=== PATIENT | male | born 1965 | race Caucasian/White ===

== ENCOUNTER 2024-08-16 18:51 | Emergency (ER) | payer OTHER ==
[~2024-08-16] VITALS: Ht 185.4 cm; Wt 97.4 kg
--- NOTE | 2024-08-16 23:36 | Physician Documentation ---
History of Present Illness ~ Chief Complaint: Neck pain Stated Complaint: NECK SHOLDER PAIN, NECK PAIN ` Time Seen by MD: 23:36 HPI Patient presented to the emergency room for evaluation of head neck and leg pain. Three days ago he was attempting to install in AC and it dropped on him onto his head and neck causing him to slide down a ladder. He also scraped his wilkes in the process in now wilkes has red and painful. Medication Reconciliation Allergies: Coded Allergies: No Known Allergies (Unverified , 08/16/24) Review of Systems ROS All review of systems negative except as per HPI Physical Exam Vital Signs: Temperature: 99.5, Source: Oral, Heart Rate: 85, Respiratory Rate: 15, BP: 126/81, Pulse Oximetry: 97, Weight: 97.360 Oxygen Flow Rate: 0 Physical Exam General: Patient is awake, alert, oriented x4 in no acute distress and well appearing.~ Head: Normocephalic the small abrasion on back of right occiput Eyes: Conjunctival normal. EOMI. PERRL. ENT: Mucous membranes moist. Neck: Supple, trachea is midline. Chest: Clear to auscultation bilaterally without rales, rhonchi, or wheezes. There is no accessory muscle use or retractions. Cardiac: RRR without murmurs, gallops, or rubs.. Extremities: Cellulitis noted to right anterior wilkes measuring 20 cm x 10 cm with no fluctuance. Neurovascularly intact. Progress Results/Orders Results/Orders Orders - BHARATH ORDAZ MD Ct Cervical Spine (08/16/24 23:59) Ct Head (08/16/24 23:59) Vl Venous (08/16/24 23:41) Completed Orders - BHARATH ORDAZ MD Ct Cervical Spine (08/16/24 23:59) Ct Head (08/16/24 23:59) Ondansetron Disint. Tablet (Zofran Odt T (08/16/24 23:45) Sulfamethox/Trimetho. Ds Tab (Septra Ds (08/16/24 23:45) Medications Received in ER Medications (Trade) Dose Ordered Sig/Duglas Route PRN Reason Start Time Stop Time Status Last Admin Dose Admin (Zofran ODT tablet) 4 mg ONCE ONCE PO 08/16/24 23:45 08/16/24 23:46 DC 08/17/24 00:10 4 MG (Septra DS tab) 2 tab ONCE ONCE PO 08/16/24 23:45 08/16/24 23:46 DC 08/17/24 00:11 2 TAB Vital Signs 08/16/24 08/17/24 18:55 00:14 Temp 99.5 98.4 Pulse 85 79 Resp 15 19 B/P (MAP) 126/81 183/89 (120) Pulse Ox 97 96 O2 Flow Rate 0 0 Medical Decision Making Findings Patient presents to the emergency room as per HPI with AC unit landing on his head and leg pain. Differentials include but are not limited to acute intracranial process such as epidural bleed, subdural bleed, intraparenchymal bleed, skull fracture, cervical fracture, DVT, cellulitis therefore imaging performed. CT scans were reassuring. Ultrasound was negative for DVT but did show Bolton's cyst and lymph node consistent with diagnosis of cellulitis. Antibiotics initiated. ER precautions discussed Departure Disposition: HOME / SELF CARE / HOMELESS Impression: Primary Impression: Bakers cyst Additional Impression: Cellulitis Condition: Stable Discharge Instructions: Bolton Cyst, Cellulitis, Adult, [id number] Referrals: NO PRIMARY CARE PROVIDER (PCP) Prescriptions Sulfamethoxazole/Trimethoprim (Bactrim Ds Tablet) 800 Mg-160 Mg Tablet 1 TAB PO Q12H for 10 Days, #20 TAB Prov: BHARATH ORDAZ MD 08/17/24 Education Educated: Patient Educated regarding: diagnosis, treatment, need for follow up Signature Scribe Signature: No scribe Attestation: The note accurately reflects work and decisions made by me.Bharath Ordaz MD 08/17/24 00:42 BHARATH ORDAZ MD Aug 16, 2024 23:36
[2024-08-17] MEDS: ondansetron 4mg rapidly disintigrating tab PO ONE (00:10)
[2024-08-17] MEDS: sulfamethoxazole/trimethoprim DS (800/160mg) tablet PO ONE (00:11)
--- NOTE | 2024-08-17 00:25 | RADIOLOGY REPORT ---
EXAM: CT CT HEAD INDICATION: fall TECHNIQUE: CT of the head without intravenous contrast. Radiation Dose : 1. Head: CT Dose: CTDI volume is 63.01 mGy. Dose-length product is 1220.0 mGy*cm The dose indicators for CT are the volume Computed Tomography (CT) Dose Index (CTDIvol) and the Dose Length Product (DLP), and are measured in units of mGy and mGy-cm, respectively. These indicators are not patient dose, but values generated from the CT scanner acquisition factors. The report includes radiation exposure data for exposures received during this examination. COMPARISON: None FINDINGS: There is no evidence of acute intracranial hemorrhage, extra-axial collection, mass effect, midline s hift, herniation or hydrocephalus. The ventricles, sulci and cisterns are age appropriate. The parson-white differentiation is intact. The visualized paranasal sinuses and mastoid air cells are clear. The surrounding soft tissues and osseous structures are unremarkable. IMPRESSION: 1. No acute intracranial abnormality. Radiation optimization: All CT scans at this facility use at least one of these dose optimization lisette hniques: automated exposure control mA and/or kV adjustment per patient size (includes targeted exam s where dose is matched to clinical indication) or iterative reconstruction.
--- NOTE | 2024-08-17 00:28 | RADIOLOGY REPORT ---
EXAM: CT CT CERVICAL SPINE INDICATION: fall EXAM DATE: 08/16/2024 11:55 PM COMPARISON: None TECHNIQUE: CT of the cervical spine without intravenous contrast. Radiation Dose Information: CT Dose: CTDI volume is 23 mGy. Dose-length product is 540 mGy*cm FINDINGS: The cervical alignment is intact. No acute cervical spine fracture is identified. The vertebral bod y heights are intact. No suspicious osseous lesions are identified. The craniocervical junction lizabeth ears intact. No significant osseous spinal canal stenosis. Moderate bilateral osseous neural foramina l narrowing.. There is no prevertebral soft tissue swelling. IMPRESSION: No evidence of acute cervical spine fracture or malalignment. END IMPRESSION:
[2024-08-17] MEDS ORDERED: SULF1TAB49 PO (00:42)
[2024-08-17 00:54] VITALS: BP 128/66; PULSE 80; RESP 18; TEMP 97.8; O2SAT 99
[2024-08-17] MEDS ORDERED: IBUP-1986 PO (01:06)
--- NOTE | 2024-08-17 06:54 | VASCULAR REPORT ---
EXAM: US Duplex Right Lower Extremity Veins CLINICAL INDICATION: Reason TECHNIQUE: Real-time duplex ultrasound scan of the right lower extremity veins integrating B-mode tw o-dimensional vascular structure, Doppler spectral analysis, color flow Doppler imaging and compressi on. COMPARISON: None FINDINGS: DEEP VEINS: Unremarkable. No DVT in the visualized common femoral, femoral, proximal deep femoral or popliteal veins. The veins demonstrate normal color flow, are normally compressible, with normal phasic flow and/or augmentation response. SUPERFICIAL VEINS: Unremarkable. No thrombus in the visualized great saphenous vein. SOFT TISSUES: No acute findings. No popliteal cyst. OTHER FINDINGS: . IMPRESSION: No DVT.
[2024-08-18] MEDS ORDERED: IBUP-1986 PO (15:46)
[2024-08-18] MEDS ORDERED: CLIN300C71 PO (15:46)
== END 2024-08-17 01:10 | disposition home or self-care (01) ==
LOC: ER 18:53
DX: M71.21 Synovial cyst of popliteal space [Baker], right knee (principal); L03.115 Cellulitis of right lower limb
CPT/HCPCS: 70450; 72125; 93971; 99284

== ENCOUNTER 2024-08-18 12:26 | Emergency (ER) | payer OTHER ==
[~2024-08-18] VITALS: Ht 185.4 cm; Wt 98.8 kg
[~2024-08-18 12:26] MED LIST: SULF1TAB49 PO
[2024-08-18 12:27] VITALS: TEMP 97.8
--- NOTE | 2024-08-18 13:08 | RADIOLOGY REPORT ---
CLINICAL INDICATION: RIGHT LEG PAIN TECHNIQUE: Right DI TIB/FIB 2 VWS Comparison: None FINDINGS/IMPRESSION: : There is no evidence of acute fracture or dislocation. Soft tissues are unremarkable. Right knee arthroplasty.
--- NOTE | 2024-08-18 13:08 | RADIOLOGY REPORT ---
EXAM: DI ANKLE, COMPLETE(3VW MIN) HISTORY: RIGHT ANKLE PAIN COMPARISON: None TECHNIQUE: Three views of the right ankle were performed. FINDINGS: No acute fracture or dislocation are identified about the right ankle. There is mild cortic al irregularity of the right distal fibula suggestive of old ligamentous injury. The mortise is intac t. There is mild tibiotalar osteoarthritis with small marginal osteophytes anteriorly. Plantar calcan eal bone spur, Achilles insertion enthesophyte, and os trigonum incidentally noted. IMPRESSION: 1. No acute fracture of the right ankle. 2. Nonacute findings as detailed above.
--- NOTE | 2024-08-18 14:18 | Physician Documentation ---
History of Present Illness ~ Chief Complaint: Leg Pain Stated Complaint: R LEG CELLULITIS Time Seen by MD: 12:42 HPI Patient is seen today with complaints of increased swelling and perceived redness of the right lower extremity after he sustained a fall from a ladder from the height of about 10 ft. Patient was seen here a couple of days ago and had a head CT which was cleared as well as an ultrasound of the right lower extremity. Date of injury was about six days ago. Patient is seen today with daughter who states they are concerned about the increased swelling of the right lower extremity and increased redness. Patient is currently taking Bactrim DS for suspected cellulitis of right lower extremity. Patient also complains of some shortness of breath off and on but denies any current chest pain or abdominal pain or nausea or vomiting or diarrhea but states he has had decreased appetite and has had some headaches off and on which he has been taking Tylenol ibuprofen to treat. They have no other concern or complaint at this time. Tetanus witin 5 years: Yes Medication Reconciliation Allergies: Coded Allergies: No Known Allergies (Unverified , 08/16/24) Scheduled Clindamycin HCl (Clindamycin HCl), 1 CAP PO Q8H Ibuprofen (Ibuprofen), 1 TAB PO Q8H Sulfamethoxazole/Trimethoprim (Bactrim Ds Tablet), 1 TAB PO Q12H Discontinued Medications Ibuprofen (Ibuprofen), 1 TAB PO Q8H, (Reported) Discontinued Reason: patient no longer taking Past Medical History Smoking Status: Never smoker Review of Systems Constitutional: Denies: chills, fever, weakness Eyes: Denies: pain, blurred vision ENT: Denies: ear pain, nose pain, throat pain, mouth pain Respiratory: Denies: cough, shortness of breath Cardiovascular: Denies: chest pain, palpitations Gastrointestinal: Denies: abdominal pain, nausea, vomiting Genitourinary: Denies: burning, dysuria Male Genitalia: Denies: penile discharge, testicular pain Neurological: Denies: headache, dizziness Musculoskeletal: Denies: pain, swelling Integumentary: Denies: rash, lesions Allergic/Immunologic: Denies: hives, itching Hematologic/Lymphatic: Denies: no symptoms reported Psychiatric: Denies: depression, anxiety Physical Exam Vital Signs: Temperature: 97.8, Source: Oral, Heart Rate: 68, Respiratory Rate: 16, BP: 127/70, Pulse Oximetry: 98, Weight: 98.800 Oxygen Flow Rate: 0 Physical Exam General: Awake and Alert, no acute distress. HEENT: Conjunctiva pink, Sclera clear, Mucus Membranes moist. Neck: Supple without masses and tenderness. Resp: Unlabored. Lungs clear to auscultation bilaterally. Heart: Regular Rate and rhythm, normal S1 and S2 without murmur, rub or gallop. Abdomen: Soft and non tender no organomegaly Extremities: Patient on exam does have pitting edema 2+ of the right lower extremity and has no edema of the left lower extremity. Patient does have some erythema of the anterior wilkes of the right lower extremity however I do not feel it to be consistent with cellulitis. Patient does not have any significant tenderness to palpation of the right lower extremity. Patient is neurovascularly intact distally. Motor function intact tips distally. Patient has negative Homans sign of right lower extremity. Skin: Warm and Dry. Progress Results/Orders Results/Orders Orders - TOM IRVIN PAC Vl Venous (08/18/24 14:13) Chest,Two Views (08/18/24 14:13) Electrocardiogram (08/18/24 14:13) Hs Troponin I W Calculations (08/18/24 16:36) Completed Orders - TOM IRVIN PAC Vl Venous (08/18/24 14:13) Ibuprofen Tablet (Motrin Tablet) (08/18/24 14:13) Acetaminophen 325mg Tablet (Tylenol Tabl (08/18/24 14:13) Cbc/Diff (08/18/24 14:13) CMP (08/18/24 14:13) Chest,Two Views (08/18/24 14:13) Electrocardiogram (08/18/24 14:13) Hs Troponin I W Calculations (08/18/24 14:36) D-Dimer (08/18/24 14:38) Medications Received in ER Medications (Trade) Dose Ordered Sig/Duglas Route PRN Reason Start Time Stop Time Status Last Admin Dose Admin (Motrin tablet) 800 mg ONCE STAT PO 08/18/24 14:13 08/18/24 14:22 DC 08/18/24 14:31 800 MG (Tylenol tablet) 975 mg ONCE STAT PO 08/18/24 14:13 08/18/24 14:22 DC 08/18/24 14:33 975 MG Vital Signs 08/18/24 12:27 Temp 97.8 Pulse 68 Resp 16 B/P (MAP) 127/70 Pulse Ox 98 O2 Flow Rate 0 Laboratory Tests Test 08/18/24 14:38 White Blood Count 11.1 H Red Blood Count 4.16 L Hemoglobin 12.6 L Hematocrit 37.3 L Mean Corpuscular Volume 89.8 Mean Corpuscular Hemoglobin 30.4 Mean Corpuscular Hemoglobin Concent 33.9 Red Cell Distribution Width 13.0 Platelet Count 244 Mean Platelet Volume 7.2 L Neutrophils (%) (Auto) 82.6 H Lymphocytes (%) (Auto) 7.8 L Monocytes (%) (Auto) 8.0 Eosinophils (%) (Auto) 1.2 Basophils (%) (Auto) 0.4 Neutrophils # (Auto) 9.1 H Lymphocytes # (Auto) 0.9 L Monocytes # (Auto) 0.9 Eosinophils # (Auto) 0.1 Basophils # (Auto) 0.0 CBC Comment D-Dimer 0.74 H D-Dimer Comment Sodium Level 139 Potassium Level 3.4 L Chloride Level 101 Carbon Dioxide Level 29.0 Anion Gap 9 Blood Urea Nitrogen 20 H Creatinine 1.21 H Estimated GFR/1.73 m2 61 BUN/Creatinine Ratio 16.5 Glucose Level 97 Calcium Level 8.8 Total Bilirubin 0.7 Aspartate Amino Transf (AST/SGOT) 26 Alanine Aminotransferase (ALT/SGPT) 45 Alkaline Phosphatase 88 Troponin I High Sensitivity 10 Total Protein 7.6 Albumin 3.3 L Globulin 4.3 Albumin/Globulin Ratio 0.8 L Chemistry Comments EKG/XRAY/CT/US/VASC/MRI EKG : Additional Comment EKG interpreted by myself today shows regular rate at 66 beats per minute, normal sinus rhythm, no axis deviation, no ST segment elevation or sign of ischemic changes. Chest X-Ray : Additional Comments Chest x-ray interpreted by myself today shows no sign of large effusion, no large infiltrate, normal mediastinum. DIAGNOSTIC RADIOLOGY Patient: SUSANA SALAZAR Medical Record: [id number] [facility] : 1965, Age: 59 Sex: Male Location: ER Patient Status: REG ER Service Date/Time: 08/18/241412 Ordering Physician: TOM IRVIN PAC Exam: CHEST,TWO VIEWS EXAM: DI CHEST,TWO VIEWS HISTORY: SOB COMPARISON: None TECHNIQUE: Frontal and lateral views of the chest were performed. FINDINGS: No pneumothorax, pulmonary edema, pleural effusions, or consolidative infiltrates. The lungs are hyperexpanded with flattening of the diaphragm on the lateral film. The heart is not enlarged. No acute displaced fractures are identified about the bony thorax. There is thoracic degenerative disc disease. IMPRESSION: No acute intrathoracic process. Electronically Signed by:ROCIO PRATT MD Date & Time: 08/18/241437 Dictated by: ROCIO PRATT MD Dictation date and time: 08/18/24 142 Primary Care Provider: NO PRIMARY CARE PROVIDER cc: TOM IRVIN PAC ~ Bone/Soft Tissue X-Ray (Ext.) : Additional Comment X-ray interpreted by myself of right tib-fib, and right ankle show no sign of acute fracture, bones in anatomic alignment, no osteolytic or blastic lesions. DIAGNOSTIC RADIOLOGY Patient: SUSANA SALAZAR Medical Record: [id number] [facility] : 1965, Age: 59 Sex: Male Location: ER Patient Status: REG ER Service Date/Time: 08/18/241232 Ordering Physician: VARSHA WEBER MD Exam: ANKLE, COMPLETE(3VW MIN) EXAM: DI ANKLE, COMPLETE(3VW MIN) HISTORY: RIGHT ANKLE PAIN COMPARISON: None TECHNIQUE: Three views of the right ankle were performed. FINDINGS: No acute fracture or dislocation are identified about the right ankle. There is mild cortical irregularity of the right distal fibula suggestive of old ligamentous injury. The mortise is intact. There is mild tibiotalar osteoarthritis with small marginal osteophytes anteriorly. Plantar calcaneal bone spur, Achilles insertion enthesophyte, and os trigonum incidentally noted. IMPRESSION: 1. No acute fracture of the right ankle. 2. Nonacute findings as detailed above. Electronically Signed by:ROCIO PRATT MD Date & Time: 08/18/241304 Dictated by: ROCIO PRATT MD Dictation date and time: 08/18/241304 Primary Care Provider: NO PRIMARY CARE PROVIDER cc: VARSHA WEBER MD ~ DIAGNOSTIC RADIOLOGY Patient: SUSANA SALAZAR Medical Record: [id number] : 1965, Age: 59 Sex: Male Location: ER Patient Status: [facility] ER Service Date/Time: 08/18/241232 Ordering Physician: VARSHA WEBER MD Exam: TIB/FIB 2 VWS CLINICAL INDICATION: RIGHT LEG PAIN TECHNIQUE: Right DI TIB/FIB 2 VWS Comparison: None FINDINGS/IMPRESSION: : There is no evidence of acute fracture or dislocation. Soft tissues are unremarkable. Right knee arthroplasty. Electronically Signed by:DOMINGO CRISTOBAL MD Date & Time: 08/18/241305 Dictated by: DOMINGO CRISTOBAL MD Dictation date and time: 08/18/241305 Primary Care Provider: NO PRIMARY CARE PROVIDER cc: VARSHA WEBER MD ~ Ultrasound : Impression VASCULAR Patient: SUSANA SALAZAR Medical Record: [id number] [facility] : 1965, Age: 59 Sex: M Location: ER Patient Status: [facility] ER Service Date/Time: 08/18/241412 Ordering Physician: TOM IRVIN PAC Exam Name: VENOUS Technologist: Pedro Ramirez CLINICAL HISTORY: Pain swelling, redness in the right calf TECHNIQUE: Color and duplex doppler imaging of the right lower extremity veins was performed. Vessel compression if possible was also performed. WID: COMPARISON: [facility] VENOUS on DOS: 08/17/24 FINDINGS: Left common femoral vein: Normal flow and phasicity. Right common femoral vein: Normal compressibility and flow. Right femoral vein: Normal compressibility and flow. Right popliteal vein: Normal compressibility and flow. Proximal calf veins are normally compressible. Enlarged right inguinal lymph node which measures 3.4 x 1.0 x 3.0 cm, Reactive appearing. IMPRESSION: NO SONOGRAPHIC EVIDENCE FOR DEEP VENOUS THROMBOSIS IN THE RIGHT LOWER EXTREMITY VEINS. Dictated by:CATIE DIETRICH MD Dictation date and time:08/18/241529 Electronically Signed by: CATIE DIETRICH MD Date and Time: 08/18/24 1530 Transcribed: [facility] Transcribed: NO PRIMARY CARE PROVIDER~ cc: TOM IRVIN PAC; CATIE DIETRICH MD ~ Medical Decision Making Findings Patient is seen today with complaints of increased swelling and perceived redness of the right lower extremity after he sustained a fall from a ladder from the height of about 10 ft. Patient was seen here a couple of days ago and had a head CT which was cleared as well as an ultrasound of the right lower extremity. Date of injury was about six days ago. Patient is seen today with daughter who states they are concerned about the increased swelling of the right lower extremity and increased redness. Patient is currently taking Bactrim DS for suspected cellulitis of right lower extremity. Patient also complains of some shortness of breath off and on but denies any current chest pain or abdominal pain or nausea or vomiting or diarrhea but states he has had decreased appetite and has had some headaches off and on which he has been taking Tylenol ibuprofen to treat. They have no other concern or complaint at this time. Shared decision-making utilized with the patient and patient's daughter. Patient did have negative ultrasound of right lower extremity negative for DVT. Patient's labs did show mild elevation of white blood count, mild anemia, very mild elevation of creatinine at 1.2 with GFR at 60. Patient had slight elevation of D-dimer at 0.7 Patient's labs largely unremarkable. Patient will continue to advance activity level as tolerated. Patient will be given a week off from work. Patient will rest and elevate right leg to help control swelling or edema and patient may wear compression stocking right lower extremity. Prescription for ibuprofen 800 mg to be taken as prescribed sent to patient's pharmacy along with clindamycin 300 mg one tab t.i.d. for 10 days and they will stop taking the Bactrim. Return to ED with any worsening, concerning or changing symptoms. Departure Disposition: 01 HOME / SELF CARE / HOMELESS Impression: Primary Impression: Lower leg edema Condition: Stable Discharge Instructions: RICE Therapy for Routine Care of Injuries, [id number] Additional Instructions: Shared decision-making utilized with the patient and patient's daughter. Patient did have negative ultrasound of right lower extremity negative for DVT. Patient's labs did show mild elevation of white blood count, mild anemia, very mild elevation of creatinine at 1.2 with GFR at 60. Patient had slight elevation of D-dimer at 0.7 Patient's labs largely unremarkable. Patient will continue to advance activity level as tolerated. Patient will be given a week off from work. Patient will rest and elevate right leg to help control swelling or edema and patient may wear compression stocking right lower extremity. Prescription for ibuprofen 800 mg to be taken as prescribed sent to patient's pharmacy along with clindamycin 300 mg one tab t.i.d. for 10 days and they will stop taking the Bactrim. Return to ED with any worsening, concerning or changing symptoms. Departure Forms: Excuse form Work or School Excused From: Work Excuse beginning now through the following date: Aug 25, 2024 Referrals: NO PRIMARY CARE PROVIDER (PCP) Prescriptions Clindamycin HCl (Clindamycin HCl) 300 Mg Capsule 1 CAP PO Q8H for 10 Days, #30 CAP Prov: TOM IRVIN 08/18/24 Ibuprofen (Ibuprofen) 800 Mg Tablet 1 TAB PO Q8H for pain for 10 Days, #30 TAB 0 Refills Prov: TOM IRVIN 08/18/24 Signature Scribe Signature: No scribe Attestation: No scribe TOM IRVIN PAC Aug 18, 2024 14:18
[2024-08-18] MEDS: ibuprofen tablet 400 MG TABLET PO STA (14:31)
[2024-08-18] MEDS: acetaminophen 325mg tablet PO STA (14:33)
--- NOTE | 2024-08-18 14:33 | ELECTROCARDIOGRAPH REPORT ---
[facility] Test Date: 2024-08-18 Test Time: 14:32:09 Pat Name: SUSANA SALAZAR Department: EMERGENCY ROOM [id number]: Gender: M [employer] Operator: LISANDRA : 1965 Requested By: TOM IRVIN [facility] Number: [id number] Reading MD: Dr. Gabo Gastelum Measurements Intervals [place] Rate: 66 P: 63 NC: 157 QRS: -11 QRSD: 113 T: 39 QT: 451 QTc: 473 Interpretive Statements Sinus rhythm Borderline intraventricular conduction delay Baseline wander in lead(s) V1 Electronically Signed On 08-18-2024 15:16:[address] Gabo Gastelum Please click the below link to view image of tracing.
--- NOTE | 2024-08-18 14:41 | RADIOLOGY REPORT ---
EXAM: DI CHEST,TWO VIEWS HISTORY: SOB COMPARISON: None TECHNIQUE: Frontal and lateral views of the chest were performed. FINDINGS: No pneumothorax, pulmonary edema, pleural effusions, or consolidative infiltrates. The lungs are hype rexpanded with flattening of the diaphragm on the lateral film. The heart is not enlarged. No acute displaced fractures are identified about the bony thorax. There is thoracic degenerative disc disease . IMPRESSION: No acute intrathoracic process.
[2024-08-18 14:50] LABS: BASOPHILS % (AUTO) 0.4 % (0-1); EOSINOPHILS # (AUTO) 0.1 X10'3 (0-0.9); EOSINOPHILS % (AUTO) 1.2 % (0-6); HEMATOCRIT 37.3 % (42.0-52.0); HEMOGLOBIN 12.6 g/dl (14.0-17.9); LYMPHOCYTES # (AUTO) 0.9 X10'3 (1.1-4.8); LYMPHOCYTES % (AUTO) 7.8 % (21-51); MEAN CORPUSCULAR HEMOGLOBIN 30.4 PG (27.0-31.0); MEAN CORPUSCULAR HGB CONC 33.9 g/dL (33.0-36.5); MEAN CORPUSCULAR VOLUME 89.8 FL (78-98); MEAN PLATELET VOLUME 7.2 FL (7.4-10.4); MONOCYTES # (AUTO) 0.9 X10'3 (0-0.9); NEUTROPHILS # (AUTO) 9.1 X10'3 (1.8-7.7); NEUTROPHILS % (AUTO) 82.6 % (42-75); PLATELET COUNT 244 X10'3 (140-440); RED BLOOD COUNT 4.16 X10'6 (4.70-6.10); WHITE BLOOD COUNT 11.1 X10'3 (4.5-11.0)
[2024-08-18 15:00] LABS: D-DIMER 0.74 MG/L FEU (0-0.50)
[2024-08-18 15:04] LABS: ALANINE AMINOTRANSFERASE 45 U/L (12-78); ALBUMIN 3.3 G/DL (3.4-5.0); ALBUMIN/GLOBULIN RATIO 0.8 (1.1-1.5); ALKALINE PHOSPHATASE 88 IU/L (46-116); ANION GAP 9 (8-16); ASPARTATE AMINO TRANSFERASE 26 U/L (10-37); BILIRUBIN,TOTAL 0.7 MG/DL (0.1-1.0); BLOOD UREA NITROGEN 20 MG/DL (7-18); BUN/CREATININE RATIO 16.5 (10.0-20.0); CALCIUM 8.8 MG/DL (8.5-10.1); CHLORIDE 101 MMOL/L (99-107); CREATININE 1.21 MG/DL (0.60-1.10); GLUCOSE 97 MG/DL (70-104); POTASSIUM 3.4 MMOL/L (3.5-5.1); SODIUM 139 MMOL/L (135-145); TOTAL PROTEIN 7.6 G/DL (6.4-8.2); eCRCL 72 ML/MIN; eGFR 61 ML/MIN
--- NOTE | 2024-08-18 15:33 | VASCULAR REPORT ---
CLINICAL HISTORY: Pain swelling, redness in the right calf TECHNIQUE: Color and duplex doppler imaging of the right lower extremity veins was performed. Vessel compression if possible was also performed. WID: COMPARISON: VASC VL VENOUS on DOS: 08/17/24 FINDINGS: Left common femoral vein: Normal flow and phasicity. Right common femoral vein: Normal compressibility and flow. Right femoral vein: Normal compressibility and flow. Right popliteal vein: Normal compressibility and flow. Proximal calf veins are normally compressible. Enlarged right inguinal lymph node which measures 3.4 x 1.0 x 3.0 cm, Reactive appearing. IMPRESSION: NO SONOGRAPHIC EVIDENCE FOR DEEP VENOUS THROMBOSIS IN THE RIGHT LOWER EXTREMITY VEINS.
[2024-08-18] MEDS ORDERED: IBUP-1986 PO (15:46)
[2024-08-18] MEDS ORDERED: CLIN300C71 PO (15:46)
[2024-08-18 15:57] VITALS: BP 110/71; PULSE 63; RESP 16; O2SAT 98
== END 2024-08-18 15:59 | disposition home or self-care (01) ==
LOC: ER 12:27
DX: R60.0 Localized edema (principal); R06.02 Shortness of breath; R51.9 Headache, unspecified
CPT/HCPCS: 36415; 71046; 73590; 73610; 80053; 84484; 85025; 85379; 93005; 93971; 99285